=== PATIENT | female | born 1955 | race Caucasian/White ===

== ENCOUNTER 2020-09-07 15:57 | Outpatient (CLI) | payer MEDICARE, SELFPAY ==
--- NOTE | ~2020-09-07 | MM_ITS ---
EXAMINATION: MM screening brigida BI w dhiraj HISTORY: Screening mammogram TECHNIQUE: Craniocaudal and mediolateral oblique 3-D tomosynthesis images were obtained and synthetic 2-D images were generated. CAD analysis was submitted and interpreted. COMPARISON: 03/07/2019, 03/20/2017, 01/28/2016 bilateral digital screening mammogram examinations BREAST PARENCHYMAL COMPOSITION: The breasts are almost entirely fatty. FINDINGS: There is no evidence of suspicious mass, calcification, or architectural distortion to sugg est malignancy in either breast. There has been no suspicious interval change. IMPRESSION: 1. No mammographic evidence of malignancy. 2. Recommend routine screening mammography in one year. BI-RADS Category 1: Negative Reviewed, dictated and finalized at location A.
== END 2020-09-07 15:58 ==
PROVIDERS: PCP Family Medicine Sports Medicine; Visit Provider Obstetrics & Gynecology Gynecology
DX: Z12.31 Encounter for screening mammogram for malignant neoplasm of breast (principal)
CPT/HCPCS: 77063; 77067

== ENCOUNTER 2020-10-11 10:01 | Observation (INO) | payer MEDICARE, SELFPAY ==
[2020-10-11] VITALS (9 sets, daily range): BP systolic 157–180; BP diastolic 54–82; PULSE 57–71; RESP 14–20; TEMP 36.1–36.6; O2SAT 94–98
--- NOTE | ~2020-10-11 | MR_ITS ---
EXAMINATION: MR brain/brain stem wo/w con DATE: 10/12/2020 11:07 INDICATION: Cerebral vascular accident. Left-sided numbness and tingling. TECHNIQUE: Magnetic resonance imaging (MRI) of the brain and brainstem was performed without and with 17 mL MultiHance intravenous contrast. Sequences included sagittal and axial T1-weighted FSE, axial diffusion-weighted FS EPI, axial T2*-weighted GRE, axial T2-weighted FLAIR Propeller, and axial T2-we ighted Propeller. Postcontrast sequences included axial, sagittal, and coronal T1-weighted FSE. Appar ent diffusion coefficient (ADC) maps were created. COMPARISON: Head CT 10/11/2020 FINDINGS: There are scattered areas of nonspecific increased T2-weighted signal intensity in the cere bral white matter. There is no intracranial hemorrhage, acute infarction, or abnormal intracranial ma ss lesion. The ventricles are normal in size. There is mild mucosal thickening in the paranasal sinus es. There are likely changes of ocular lens replacement surgeries. The mastoid air cells are normal. IMPRESSION: 1. Mild nonspecific cerebral white matter disease, which likely represents chronic small vessel ische gloria disease. Reviewed, dictated and finalized at location B. IMPRESSION: 1. 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
--- NOTE | ~2020-10-11 | CT_ITS ---
EXAMINATION: CTA brain carotid DATE: 10/11/2020 11:25 INDICATION: Cerebral vascular accident. Left-sided numbness and tingling. TECHNIQUE: Computed tomographic angiography (CTA) of the head was performed without and with 100 mL O mnipaque-350 intravenous contrast. CTA of the neck was performed with intravenous contrast. Automated exposure control and iterative reconstruction technique were employed. The dose-length product was 1 559.53 mGy-cm. Maximum intensity projection and volume rendered 3D-reconstructions were created by dre dutton technologist on a separate workstation. COMPARISON: None. FINDINGS: HEAD CTA: There are scattered areas of low attenuation in the cerebral white matter, which is within normal limits for the patient's age. There is no intracranial hemorrhage, acute infarction, or abnorm al intracranial mass lesion. The ventricles are normal in size. There is mild mucosal thickening in t he paranasal sinuses. The mastoid air cells are normal. There are likely changes of ocular lens repla cement surgeries. The vertebral arteries are codominant. There is no significant stenosis of basilar artery or the posterior cerebral arteries. There is no significant stenosis of the intracranial inter nal carotid arteries or anterior or middle cerebral arteries. Anterior communicating artery is normal . There is a 2 mm aneurysm of right middle cerebral artery. The posterior communicating arteries are normal. NECK CTA: There are no pathologically enlarged lymph nodes. There is no significant stenosis of the v ertebral arteries. There is no visible plaque in the proximal internal carotid arteries. There is 0% stenosis of the proximal right internal carotid artery relative to normal distal artery lumen diamete r (NASCET criteria). There is 0% stenosis of the proximal left internal carotid artery relative to no rmal distal artery lumen diameter. There is severe cervical spondylosis. IMPRESSION: 1. No acute intracranial pathology. 2. 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 3. 0% stenosis of the proximal internal carotid arteries relative to normal distal artery lumen diame ters (NASCET criteria). Reviewed, dictated and finalized at location B. IMPRESSION: 1. No acute intracranial pathology. 2. 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 3. 0% stenosis of the proximal internal carotid arteries relative to normal dis isaias artery lumen diameters (NASCET criteria).
--- NOTE | ~2020-10-11 | XR_ITS ---
EXAMINATION: XR chest 1V portable DATE: 10/11/2020 10:50 INDICATION: Cerebrovascular accident. Weakness on one side of the body. TECHNIQUE: A single frontal view of the chest was obtained. COMPARISON: CT abdomen 06/03/2004 FINDINGS: The chest demonstrates clear lungs without pneumonia, pleural effusion, or pneumothorax. Th e heart size is normal. IMPRESSION: 1. No acute cardiopulmonary disease. Reviewed, dictated and finalized at location B.
--- NOTE | 2020-10-11 10:15 | ECG_ITS ---
Measurements Intervals [place] Rate: 60 P: 31 NV: 200 QRS: -19 QRSD: 94 T: 11 QT: 405 QTc: 407 Interpretive Statements SINUS RHYTHM DELAYED PRECORDIAL R/S TRANSITION VOLTAGE CRITERIA FOR LVH BORDERLINE T WAVE ABNORMALITY- ANT/INF LEADS BASELINE ARTIFACT- V4 BORDERLINE ECG Electronically Signed On 10-11-2020 10:31:34 CDT by Kwabena Viramontes D.O.
[2020-10-11 10:36] LABS: Glucose Point of Care 117 (65-105)
[2020-10-11 10:47] LABS: Basophils Absolute Auto 0.1 K/mm3 (0.0-0.1); Basophils Percent Auto 1.2 % (0.2-1.2); Eosinophils Absolute Auto 0.4 K/mm3 (0-0.3); Eosinophils Percent Auto 6.1 % (0-4.4); Hematocrit 44.7 % (37.0-47.0); Immature Granulocyte Absolute 0.02 K/mm3 (0.00-0.031); Immature Granulocyte Percent A 0.3 % (0-0.5); Lymphocytes Absolute Auto 2.32 K/mm3 (0.9-3.2); Lymphocytes Percent Auto 36.2 % (18.3-44.2); Mean Corpuscular HGB Conc 33.6 g/dl (32-36); Mean Corpuscular Volume 86.5 fl (80-100); Monocytes Absolute Auto 0.4 K/mm3 (0.1-0.6); Monocytes Percent Auto 6.9 % (2.6-8.5); Neutrophils Absolute Auto 3.2 K/mm3 (1.3-6.7); Neutrophils Percent Auto 49.3 % (45.5-73.1); Platelet Count Result 258 k/mm3 (150-375); Red Blood Count 5.17 M/mm3 (4.2-5.4); Red Cell Distribution Width 13.2 % (11.5-14.5); White Blood Count 6.4 K/mm3 (4.5-10.0)
[2020-10-11 10:59] LABS: Anion Gap 7 mmol/L (8-16); Blood Urea Nitrogen 14 mg/dL (7-17); Calcium 9.8 mg/dL (8.4-10.2); Carbon Dioxide 26 mmol/L (22-30); Chloride 106 mmol/L (98-107); Estimated CRCL calculation 60 ml/min; Estimated Glomerular Filt Rate > 60; Glucose 130 mg/dL (65-105); Potassium 3.5 mmol/L (3.4-5.0); Sodium 139 mmol/L (137-145)
[2020-10-11 11:04] LABS: Prothrombin Time 13.7 Seconds (11.1-14.7)
[2020-10-11 11:05] LABS: Partial Thromboplastin Time 24.7 SECONDS (22.3-36.8)
[2020-10-11 11:10] LABS: Troponin I < 0.012 ng/mL (0.000-0.034)
--- NOTE | 2020-10-11 12:38 | ED.GENADULT ---
HPI - General Adult General Chief complaint: Neuro Symptoms/Deficit Stated complaint: left numbness Time Seen by Provider: 10/11/20 10:02 Source: patient and RN notes reviewed Mode of arrival: ambulatory Limitations: no limitations History of Present Illness HPI narrative: Patient is a 65-year-old female who presents to emergency department for evaluation of left-sided numbness to include the left side of the face left upper extremity left lower extremity that began while at home today around 10:00 patient notes mild left-sided headache. Patient presents for concern with these findings patient denies injury trauma similar occurrence in the past or recent illness. Patient notes she did not take her blood pressure medication this morning. Patient notes that she has been compliant with her medications. On arrival patient in no distress. Related Data Home Medications Medication Instructions Recorded Confirmed aspirin 81 mg PO DAILY 10/11/20 atenolol 50 mg PO DAILY 10/11/20 Allergies Allergy/AdvReac Type Severity Reaction Status Date / Time Penicillins Allergy Severe HIVES---IN Verified 10/11/20 10:47 CHILDHOOD. adhesive Allergy Mild BLISTERS Verified 10/11/20 10:47 Review of Systems Review of Systems: All systems reviewed & are unremarkable except as noted in HPI and below PMFSH Past Medical History Medical History Hypertension Surgical History Surgical History (Updated 10/11/20 @ 12:40 by Melo Macias PA-C) History of bowel resection Social History Social History (Updated 10/11/20 @ 12:40 by Melo Macias PA-C) Smoking status: Current every day smoker Exam Narrative: Exam Narrative: GENERAL: Well-appearing, obese, and in no acute distress. HEAD: Normocephalic, atraumatic. EYES: PERRLA and EOMI. ENT: Nares clear, no rhinorrhea or epistaxis. Mucous membranes moist. CHEST: Clear to auscultation. No respiratory distress. No wheezes rales or rhonchi HEART: Regular rate and rhythm. No murmur heard. Normal peripheral pulses. ABDOMEN: Soft, nontender, nondistended EXTREMITIES: Normal range of motion. No edema. SKIN: Warm, dry, no rash. NEURO: No focal deficits. Alert and oriented x3. Cranial nerves II through XII grossly intact. Normal speech. Normal gait. Cerebellar intact. No pronator drift. Normal [id number] and xaak-iv-[id number]. PSYCH: Normal mood and affect. Course Course Emergency Course: Patient evaluated in the emergency department evaluation was unremarkable aside from aneurysm that was noticed on CT imaging discussion was made with the neurology who will consult on patient recommends further stroke work-up in hospital. Patient agrees with this plan ABCs and vital signs intact and stable. Patient symptoms are largely resolved at this time and she is resting comfortably hemodynamically stable. Consultations Consultation #1: Discussed case with neurology Dr. Mccollum who recommends bringing the patient into the hospital for further evaluation of her symptoms Discussed case with Dr. Quinones the hospitalist who has agreed to accept the patient Date: 10/11/20 Time: 12:42 Vital Signs Vital signs: Vital Signs Temperature 97.8 F 10/11/20 10:29 Pulse Rate 63 10/11/20 10:29 Respiratory Rate 18 10/11/20 10:29 Pulse Oximetry 96 10/11/20 10:29 Temperature 97.8 F 10/11/20 10:29 Pulse Rate 59 L 10/11/20 12:33 Respiratory Rate 16 10/11/20 12:33 Blood Pressure 159/79 H 10/11/20 12:33 Pulse Oximetry 97 10/11/20 12:33 Medical Decision Making [facility] Narrative Medical decision making narrative: Patient presented with numbness to the left side of the body largely resolved will be brought into the hospital for further evaluation of her symptoms. Patient agrees with this and is hemodynamically stable in no distress Vital Signs Vital Signs: Vital Signs Temperature 97.8 F 10/11/20 10:29 Pulse Ra
--- NOTE | 2020-10-11 15:27 | ADMGEN ---
This patient, Virginia Kiran, was admitted to Medical Room 243-01. Patient/family oriented to hospital policies and general routines including ID bracelet, bed and alarms, visiting hours, pain management, procedures, bathroom and other care routines, personal items, smoking policy, room service/diet, and visiting hours. Information on how to activate the Rapid Response Team has been discussed. Patient/Family are encouraged to report perceived risks to care and to ask questions if they do not understand what they are told or what they should do.
[2020-10-11] MEDS: LACTATED RINGERS 1,000 ML 75 ML IV CONT (15:45)
[2020-10-11] MEDS: atenoloL 50 MG TABLET PO (15:47)
[2020-10-11] MEDS: FAMOTIDINE 20 MG/2 ML VIAL IV PUSH (21:18)
--- NOTE | 2020-10-11 21:49 | PM.IMHP ---
H&P: HPI History of Present Illness Date/Time: 10/11/20 21:49 65-year-old female patient who came to the emergency room complaints of left-sided numbness left-sided facial numbness and tingling. The patient states she was having difficulty moving her left arm and left leg. This started today around 10:00 a.m.. She also had a left-sided headache. She has a history hypertension. No past medical history of having any strokes or TIAs. The patient states that she takes a daily aspirin the and did not take 1 today. She has not taken any of her medication today. She had a chest x-ray with no acute cardiopulmonary disease. Head CT was read as no acute intracranial pathology. To unit under 6 Agueda aneurysm afraid middle cerebral artery. 0% stenosis of the proximal internal carotid arteries relative to Marisel discharge the artery lumen diameters. The patient was given atenolol in the emergency room. She was also given IV Tylenol in the emergency room as well. The patient has no facial drooping at this time and she is moving all extremities without difficulty. The patient is being admitted to [facility] that his service of 10/11/2020. Chief Complaint: Numbness and tingling left upper arm left lower Review of Systems Review of Systems: All systems reviewed & are unremarkable except as noted in HPI and below Constitutional: Constitutional: Reports as per HPI and Reports no additional constitutional complaints Eyes: Eyes: Reports as per HPI and Reports no additional eye complaints ENT: Reports system reviewed and no additional complaints, except as documented and Reports Normal hearing present Cardiovascular: Cardiovascular: Reports no additional cardiovascular complaints Respiratory: Respiratory: Reports no additional respiratory complaints and Reports no additional respiratory complaints Gastrointestinal: Gastrointestinal: Reports as per HPI and Reports no additional gastrointestinal complaints Musculoskeletal: Musculoskeletal: Reports no additional musculoskeletal complaints Integumentary/Breasts: Skin/Breast: Reports system reviewed and no additional complaints, except as docu and Reports as per HPI Neurologic: Reports system reviewed and no additional complaints, except as documented, Reports as per HPI and Reports Normal hearing present Psychiatric: Psychiatric: Reports no additional psychiatric complaints and Reports as per HPI Endocrine: Endocrine: Reports no additional endocrine complaints Hematologic/Lymphatic: Hematologic/Lymphatic: Reports no additional hematologic/lymphatic complaints Allergic/Immunologic: Allergic/Immunologic: Reports no additional allergic/immunologic complaints [facility] Past Medical History Medical History (Updated 10/11/20 @ 22:23 by Marguerite Roth NP) History of colon cancer Hypertension Surgical History Surgical History History of bowel resection Family History Family History (Updated 10/11/20 @ 22:20 by Marguerite Roth NP) Mother CHF (congestive heart failure) Dementia Father Heart disease Colon cancer Son Carcinoma of colon Social History Social History (Updated 10/11/20 @ 22:21 by Marguerite Roth NP) Social History: The patient is and has 5 children. 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 She does not have a durable power assistant prosecuting attorney for healthcare. She is a full code. Lifelong nonsmoker. She denies any Alcohol, marijuana, or illicit drugs. Smoking status: Never smoker Second hand tobacco smoke exposure: No Alcohol intake: current Drinks per week: 2 Substance use: current Substance use type: marijuana Other substance usage details: edibles Last use: monthly Spiritual care concerns: No Meds Home Medications and Allergies Home Medications Medication Instructions Recorded Confirmed Type aspirin 81 mg PO DAILY 10/11/20 10/11/20 History atenolol 50 mg PO DAILY 10/11/20 10/11/20 Hist
[2020-10-11] MEDS: MELATONIN 5 MG TABLET PO (21:53)
[2020-10-11] MEDS: ASPIRIN 81 MG ENTERIC TABLET PO (22:13)
[2020-10-12] VITALS (11 sets, daily range): BP systolic 135–144; BP diastolic 65–67; PULSE 48–68; RESP 14–16; TEMP 36.1–36.3; O2SAT 96–99
[2020-10-12] MEDS: LACTATED RINGERS 1,000 ML 75 ML IV CONT (05:16)
[2020-10-12] MEDS: ASPIRIN 81 MG ENTERIC TABLET PO (05:44)
[2020-10-12] MEDS: atenoloL 50 MG TABLET PO ×2 (05:44→16:46)
[2020-10-12 05:49] LABS: Basophils Absolute Auto 0.1 K/mm3 (0.0-0.1); Basophils Percent Auto 1.3 % (0.2-1.2); Eosinophils Absolute Auto 0.4 K/mm3 (0-0.3); Eosinophils Percent Auto 5.9 % (0-4.4); Hematocrit 42.4 % (37.0-47.0); Hemoglobin 14.2 g/dL (12.0-15.0); Immature Granulocyte Absolute 0.02 K/mm3 (0.00-0.031); Immature Granulocyte Percent A 0.3 % (0-0.5); Lymphocytes Absolute Auto 2.99 K/mm3 (0.9-3.2); Lymphocytes Percent Auto 43.9 % (18.3-44.2); Mean Corpuscular HGB Conc 33.5 g/dl (32-36); Mean Corpuscular Hemoglobin 28.7 pg (26-34); Mean Corpuscular Volume 85.7 fl (80-100); Mean Platelet Volume 10.3 fl (7.4-10.4); Monocytes Absolute Auto 0.6 K/mm3 (0.1-0.6); Monocytes Percent Auto 8.2 % (2.6-8.5); Neutrophils Absolute Auto 2.8 K/mm3 (1.3-6.7); Neutrophils Percent Auto 40.4 % (45.5-73.1); Platelet Count Result 257 k/mm3 (150-375); Red Blood Count 4.95 M/mm3 (4.2-5.4); White Blood Count 6.8 K/mm3 (4.5-10.0)
[2020-10-12 05:58] LABS: Lactic Acid Reflex 1.3 mmol/L (0.7-2.1)
--- NOTE | 2020-10-12 06:00 | ECHO_ITS ---
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 Summary 1. Complete two-dimensional, color flow and Doppler transthoracic echocardiogram is performed. 2. Left ventricular chamber dimension is normal. 3. Left ventricular systolic function is normal, estimated at 60-65%. 4. There is mildly increased left ventricular wall thickness. 5. The left ventricular diastolic function is normal. 6. There is mild aortic valve sclerosis. Left Ventricle Left ventricular chamber dimension is normal. Left ventricular systolic function is normal, estimated at 60-65%. There is mildly increased left ventricular wall thickness. The left ventricular diastolic function is normal. Right Ventricle Right ventricular chamber dimension is normal. Right ventricular systolic function is normal. Left Atria Left atrial chamber dimension is normal. Right Atria Right atrial chamber dimension is normal. Atrial Septum Intact interatrial septum visualized by color flow imaging. Aortic Valve The aortic valve is trileaflet. There is mild aortic valve sclerosis. There is no aortic valve stenosis. There is trace aortic valve regurgitation. Pulmonic Valve The pulmonic valve is normal. There is no pulmonic valve stenosis. There is trace pulmonic regurgitation. Mitral Valve The mitral valve has normal leaflets. There is no mitral valve stenosis. There is trace mitral valve regurgitation. Tricuspid Valve The tricuspid valve leaflets are normal. There is no significant tricuspid valve stenosis. There is trace tricuspid valve regurgitation. No pulmonary hypertension, estimated pulmonary arterial systolic pressure is 12 mmHg. Pericardium/Pleural The pericardium appears normal. There is trivial pericardial effusion. Inferior Vena Cava Normal inferior vena cava with >50% collapse upon inspiration consistent with normal right atrial pressure, 5 mmHg. Aorta The aortic root size at the sinus of Valsalva is normal. The prox ascending aorta size is normal. Left Ventricular Outflow Tract Name Value Normal LVOT 2D LVOT Diameter 2.0 cm Pulmonic Valve Name Value Normal PV Doppler PV Peak Gradient 2 mmHg Mitral Valve Name Value Normal
[2020-10-12 06:04] LABS: Alanine Aminotransferase 13 U/L (4-35); Albumin Level 3.7 g/dL (3.5-5.1); Alkaline Phosphatase 73 U/L (38-126); Anion Gap 4 mmol/L (8-16); Aspartate Amino Transferase 23 U/L (14-36); Bilirubin,Total 0.6 mg/dL (0.2-1.3); Blood Urea Nitrogen 12 mg/dL (7-17); Calcium 9.4 mg/dL (8.4-10.2); Carbon Dioxide 27 mmol/L (22-30); Chloride 109 mmol/L (98-107); Estimated CRCL calculation 68 ml/min; Estimated Glomerular Filt Rate > 60; Glucose 91 mg/dL (65-105); Magnesium 2.2 mg/dL (1.6-2.3); Potassium 3.7 mmol/L (3.4-5.0); Sodium 140 mmol/L (137-145)
[2020-10-12 07:04] LABS: Folic Acid 8.5 ng/mL (2.76->20)
[2020-10-12 07:29] LABS: Free T4 Free Thyroxine Reflex 0.95 ng/dL (0.78-2.19)
[2020-10-12 08:17] LABS: Total Triiodothyronine (T3) 1.26 NG/ML (0.97-1.69)
[2020-10-12] MEDS: FAMOTIDINE 20 MG/2 ML VIAL IV PUSH (08:19)
--- NOTE | 2020-10-12 11:04 | WPDNEURCNPN ---
Assessment and Plan Assessment and plan (1) Aneurysm: Code(s): I72.9 - Aneurysm of unspecified site Status: Acute Additional Plan complains of left-sided facial numbness with incidental finding of 2mm saccular aneurysm of the right middle cerebral artery, negative CTA otherwise and no evidence of bleed, routine lab is normal will discuss with the patient for the follow-up for the aneurysm in the long run but echocardiogram can be completed as well Consult date: 10/12/20 Time Seen: 11:00 HPI: Virginia Kiran is a 65 year old female Admitted to the hospital with the complaints of left-sided numbness including left face in addition to the difficulties in moving her left upper and left lower extremity and left-sided headache patient has history of hypertension but no previous history of stroke though she has been taking aspirin which she did not take on the day of admission initial CT scan in the emergency room was negative he received atenolol in the emergency room and was admitted to the hospital for further evaluation, past history is consistent with colon cancer and hypertension in addition to the history of bowel resection, she is not a smoker drinks 2 per week, evaluation included the CTA of the brain and carotid which documented 2mm saccular aneurysm of the right middle cerebral artery but the posterior communicating arteries were normal and MRI of the brain at this stage is pending Review of Systems Review of Systems: All systems reviewed & are unremarkable except as noted in HPI and below PMFSH Past Medical History Medical History History of colon cancer Hypertension Surgical History Surgical History History of bowel resection Family History Family History Mother CHF (congestive heart failure) Dementia Father Heart disease Colon cancer Son Carcinoma of colon Social History Social History Social History: The patient is and has 5 children. 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 She is a full code. Lifelong nonsmoker. She denies any Alcohol, marijuana, or illicit drugs. Smoking status: Never smoker Second hand tobacco smoke exposure: No Alcohol intake: current Drinks per week: 2 Substance use: current Substance use type: marijuana Other substance usage details: edibles Last use: monthly Spiritual care concerns: No Meds Home Medications and Allergies Home Medications Medication Instructions Recorded Confirmed Type aspirin 81 mg PO DAILY 10/11/20 10/11/20 History atenolol 50 mg PO DAILY 10/11/20 10/11/20 History Allergies Allergy/AdvReac Type Severity Reaction Status Date / Time Penicillins Allergy Severe HIVES---IN Verified 10/11/20 15:53 CHILDHOOD. adhesive Allergy Mild BLISTERS Verified 10/11/20 15:53 Vital Signs Vital Signs - 24 hr 10/11/20 12:33 10/11/20 14:41 10/11/20 15:47 Temperature Pulse Rate 59 L 57 L 60 Respiratory Rate 16 14 Blood Pressure 159/79 H 174/72 H Pulse Oximetry 97 97 10/11/20 15:50 10/11/20 16:00 10/11/20 18:00 Temperature 36.1 C L 36.4 C L Pulse Rate 58 L 63 71 Respiratory Rate 20 18 Blood Pressure 168/82 H 157/54 H Pulse Oximetry 98 98 10/11/20 20:00 10/12/20 00:00 10/12/20 04:00 Temperature 36.2 C L 36.1 C L Pulse Rate 59 L 55 L 48 L Respiratory Rate 16 16 Blood Pressure 159/72 H 135/65 Pulse Oximetry 94 98 10/12/20 05:00 10/12/20 05:10 10/12/20 05:44 Temperature 36.3 C L 36.3 C L Pulse Rate 58 L 58 L 68 Respiratory Rate 16 16 Blood Pressure 144/65 H 144/65 H Pulse Oximetry 96 96 10/12/20 09:41 Temperature Pulse Rate Respiratory Rate Blood Pressure Pulse Oximetry 97 Exam Const: General: cooperative, healthy
[2020-10-12] MEDS: ALPRAZolam (*CRX) 0.25 MG TABLET PO (11:38)
--- NOTE | 2020-10-12 17:24 | PM.DS ---
DS: Admitting Diagnosis Admitting Diagnosis Admitting Diagnosis: Left sided weakness DS: Discharge Diagnosis Discharge Diagnosis (1) Acute CVA (cerebrovascular accident): Code(s): I63.9 - Cerebral infarction, unspecified Status: Acute (2) Hypertension: Code(s): I10 - Essential (primary) hypertension Status: Chronic (3) Paresthesia: Code(s): R20.2 - Paresthesia of skin Status: Acute (4) Aneurysm: Code(s): I72.9 - Aneurysm of unspecified site Status: Acute DS: Summary Hospital Course Reason for hospitalization: Patient is a 65-year-old woman with a history of hypertension on Atenolol and Aspirin 81 mg, who presented to the emergency room with numbness/tingling/weakness to the left side of her body which began while she was sitting down looking at her cellphone. She was able to drive herself to a local urgent care and EMS was called to bring her to emergency room. By the time she arrived in the ER her symptoms had resolved. Initial vitals showed, patient was afebrile, heart rate 63, respiratory rate 18, oxygen saturation 98% on room air, blood pressure elevated at 180/70. Initial labs showed normal CBC with differential, normal coag panel, normal CMP, troponin negative. MRI Brain showed Mild nonspecific cerebral white matter disease, which likely represents chronic small vessel ischemic disease. No acute or chronic stroke. CTA Head&Neck showed No acute intracranial pathology. 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 0% stenosis of the proximal internal carotid arteries relative to normal distal artery lumen diameters (NASCET criteria). Echocardiogram showed normal EF 60-65%, normal diastolic function. Mild LVH. Neurology evaluated the patient and recommended follow up as an outpatient. I also called Neurosurgery at [facility] for further evaluation and to set up follow up for her aneurysm and Dr. Howell stated at this time she has a 0% chance of rupture as long as her aneurysm is less than 7mm. He said he would continue her Aspirin at this time, she could be able to tolerate her being increased to Plavix, but at this time he would recommend her following up with him as an outpatient and they can make adjustments to her regimen if needed. Informed the patient and daughter at bedside. I also obtained labs from her cardiologists office which were completed within the last 2 months which showed her LDL cholesterol was elevated at 187 and total cholesterol was elevated as well. She was not started on a cholesterol medication. She did have a Calcium Score completed at cardiology office which showed she had very low risk of disease at 0. Her Head and Neck CTA showed no carotid stenosis. Based on stroke like symptoms and increased cholesterol will start her on Atrovastatin 40 mg and have her recheck Lipid panel in 6 weeks. Follow up with special education science teacher, Neurology, Neurosurgeon and PCP within 1 week of discharge for further evaluation and monitoring. Also, placed order for Holter Monitor to be placed at her cardiology office for further evaluation and to rule out arrhythmia. Her sister has a history of Afib and mother had TIAs, During her admission Tele was unremarkable. Will call her special education science teacher to try and get this set up and sent to her home. The patient understands and agrees with the plan. All questions answered. Hospital Course: See above Status at Discharge Cognitive/behavioral status at discharge: Stable, improved. Time Spent with Patient Time attestation: Total time spent providing and/or coordinating discharge services: 41 Time spent: Greater than 30 minutes Exam Narrative: Exam Narrative: General: 65-year-old woman sitting up in bed,appears anxious. Appears comfortable. In no acute distress. Skin: No jaundice or cyanosis. Good skin turgor. Neck: Full range of motion. Supple. Respiratory: Lungs are clear to auscultation bilaterally. No bony chest wall tenderness. Cardiovascular: T
== END 2020-10-12 17:54 | disposition home or self-care (01) ==
LOC: ANHED 12:44 → ANH2MED 13:15
PROVIDERS: Emergency Medicine Emergency Medical Services; Nurse Practitioner; Admitting Provider Family Medicine; Emergency Provider Emergency Medicine; PCP Family Medicine Sports Medicine; Visit Provider Internal Medicine
DX: I67.1 Cerebral aneurysm, nonruptured (principal); G81.94 Hemiplegia, unspecified affecting left nondominant side; I10 Essential (primary) hypertension; Z85.038 Personal history of other malignant neoplasm of large intestine; R20.2 Paresthesia of skin
CPT/HCPCS: 36415; 70496; 70498; 70553; 71045; 80048; 80053; 81025; 82607; 82746; 82948; 83605; 83735; 84439; 84443; 84480; 84484; 85025; 85610; 85730; 93005; 93306; 96361; 96374; 96375; 96376; 99285; A9270; A9577; G0378; J0131; J7120; Q9967

== ENCOUNTER 2022-03-28 11:30 | Outpatient (CLI) | payer MEDICARE, SELFPAY ==
--- NOTE | ~2022-03-28 | MM_ITS ---
EXAMINATION: MM screening [facility] BI w dhiraj HISTORY: Screening mammogram TECHNIQUE: Craniocaudal and mediolateral oblique 3-D tomosynthesis images were obtained and synthetic 2-D images were generated. CAD analysis was submitted and interpreted. COMPARISON: 09/07/2020, 03/07/2019, 03/20/2017 BREAST PARENCHYMAL COMPOSITION: The breasts are almost entirely fatty. FINDINGS: No suspicious mass, calcification, or architectural distortion are identified in either myke ast to suggest malignancy. There has been no suspicious interval change. IMPRESSION: 1. No mammographic evidence of malignancy. 2. Recommend routine screening mammography in one year. BI-RADS Category 1: Negative Reviewed, dictated and finalized at location A.
--- NOTE | ~2022-03-28 | DEXA_ITS ---
Bone Density Report Name: BRENNAN NEWMAN Age: 66 Sex: Female Ethnicity: White Date of : 1955 Indication: osteopenia; monitoring treatment; hysterectomy; postmenopausal Referring Provider: CHANCE BURNS Study: Bone densitometry was performed. Exam Date: March 28, 2022 Accession number: [id number] Bone Density: Region BMD T-score Z-score Classification AP Spine (L1-L4) 0.847 -1.8 0.0 Osteopenia Femoral Neck (Left) 0.765 -0.8 0.8 Normal Total Hip (Left) 0.872 -0.6 0.7 Normal Femoral Neck (Right) 0.706 -1.3 0.3 Osteopenia Total Hip (Right) 0.792 -1.2 0.0 Osteopenia Total Hip Mean 0.832 -0.9 0.4 Normal World Health Organization criteria for BMD impression classify patients as: Normal (T-score at or above -1.0), Osteopenia (T-score between -1.0 and -2.5), or Osteoporosis (T-score at or below -2.5). 10-year Fracture Risk: FRAX not reported because: Treated for osteoporosis Previous Exams: Region Exam Age BMD T-score BMD Change BMD Change Date g/cm2 vs Baseline vs Previous AP Spine(L1-L4) 03/28/2022 66 0.847 -1.8 -0.034* 0.019 03/07/2019 63 0.828 -2.0 -0.053* -0.053* 01/03/2010 54 0.880 -1.5 Total Hip(Left) 03/28/2022 66 0.872 -0.6 0.033* 0.030* 03/07/2019 63 0.841 -0.8 0.003 0.003 01/03/2010 54 0.839 -0.8 Total Hip(Right) 03/28/2022 66 0.792 -1.2 -0.010 -0.020 03/07/2019 63 0.812 -1.1 0.010 0.010 01/03/2010 54 0.802 -1.1 *Denotes significance at 95% confidence level, LSC for AP Spine = 0.022 g/cm2, LSC for Total Hip = 0.027 g/cm2 Clinical Information Provided by Patient: Is being treated for osteoporosis Has used the following medications: Boniva (i.e. ibandronate), Vitamin D Has the following medical conditions: Hysterectomy Patient maximum height was 60 Menopause Age: 43 Drinks caffeinated beverages Onset of menses at age 10 Number of children 5 Impression: The patient has low bone mass, based on the Total Spine T-score. No significant bone loss was observed. Discussion: PATIENT UNDER TREATMENT WITH NO SIGNIFICANT BMD LOSS SINCE LAST EXAM. In an untreated patient, BMD typically declines with age. A lack of decline or gain is usually a sign that treatment is efficacious and fracture risk is reduced. It is important to ask patients whether they are taking their medications and to encourag
== END 2022-03-28 11:31 ==
PROVIDERS: PCP Family Medicine Sports Medicine; Visit Provider Obstetrics & Gynecology Gynecology
DX: Z12.31 Encounter for screening mammogram for malignant neoplasm of breast (principal); Z78.0 Asymptomatic menopausal state; M85.88 Other specified disorders of bone density and structure, other site; M85.851 Other specified disorders of bone density and structure, right thigh
CPT/HCPCS: 77063; 77067; 77080

== ENCOUNTER 2024-01-30 13:34 | Outpatient (CLI) | payer MEDICARE, SELFPAY ==
--- NOTE | ~2024-01-30 | MM_ITS ---
EXAMINATION: MM screening [facility] BI w dhiraj HISTORY: Screening TECHNIQUE: Craniocaudal and mediolateral oblique 3-D tomosynthesis images were obtained and synthetic 2-D images were generated. CAD analysis was submitted and interpreted. COMPARISON: Comparison to multiple prior studies sequentially, with oldest reviewed study dated 01/27. BREAST PARENCHYMAL COMPOSITION: Not Dense: The breasts are almost entirely fatty. FINDINGS: There is no evidence of suspicious mass, calcification, or architectural distortion to sugg est malignancy in either breast. There has been no suspicious interval change. IMPRESSION: 1. No mammographic evidence of malignancy. 2. Recommend routine screening mammography in one year. BI-RADS Category 1: Negative Reviewed, dictated and finalized at location B.
== END 2024-01-30 13:35 ==
PROVIDERS: PCP Family Medicine Sports Medicine; Visit Provider Obstetrics & Gynecology Gynecology
DX: Z12.31 Encounter for screening mammogram for malignant neoplasm of breast (principal)
CPT/HCPCS: 77063; 77067

== ENCOUNTER 2024-09-01 12:22 | Outpatient (CLI) | payer MEDICARE, SELFPAY ==
--- NOTE | ~2024-09-01 | DEXA_ITS ---
Bone Density Report Name: BRENNAN NEWMAN Age: 69 Sex: Female Ethnicity: White Date of : 1955 Indication: postmenopausal; screening for osteoporosis; hysterectomy; Referring Provider: CHANCE BURNS Study: Bone densitometry was performed. Exam Date: September 01, 2024 Accession number: [id number] Bone Density: Region BMD T-score Z-score Classification AP Spine(L1-L4) 0.831 -2.0 0.0 Osteopenia Femoral Neck (Left) 0.622 -2.0 -0.3 Osteopenia Total Hip (Left) 0.894 -0.4 1.0 Normal Femoral Neck (Right) 0.647 -1.8 -0.1 Osteopenia Total Hip (Right) 0.750 -1.6 -0.2 Osteopenia Total Hip Mean 0.822 -1.0 0.4 Normal World Health Organization criteria for BMD impression classify patients as: Normal (T-score at or above -1.0), Osteopenia (T-score between -1.0 and -2.5), or Osteoporosis (T-score at or below -2.5). 10-year Fracture Risk(1): Major Osteoporotic Fracture 11% Hip Fracture 2.0% Reported Risk Factors: [place] (), Neck BMD=0.622, BMI=29.1 (1) FRAX(R) Version 3.08. Fracture probability calculated for an untreated patient. Fracture probability may be lower if the patient has received treatment. Clinical Information Provided by Patient: Has used the following medications: Vitamin D Has the following medical conditions: Hysterectomy Patient maximum height was 60 Menopause Age: 43 Onset of menses at age 10 Number of children 5 Impression: The patient has low bone mass, based on the Total Spine T-score. The patient has an estimated ten-year risk of hip fracture of 2% and an estimated ten-year risk of major fracture of 11%, based on the WHO FRAX algorithm. Discussion: BONE DENSITY IS LOW AT ONE OR MORE SKELETAL SITES. This patient's lowest T-score is low at one or more skeletal sites. It meets the World Health Organization's (WHO) criteria for ?low bone mass? (T-score between -1.0 and -2.5). The patient's 10-year risk of fracture as calculated by FRAX is less than the threshold where pharmacological therapy is recommended by the National Osteoporosis Foundation (NOF). However, all treatment decisions require clinical judgment and consideration of individual patient factors, including patient preferences, comorbidities, previous drug use, risk factors not captured in the FRAX model (e.g., frailty, falls, vitamin D deficiency, increased bone turnover, interval significant decline in bone density) and possible under or overestimation of fracture risk by FRAX. The patient should follow a healthful lifestyle (good nutrition with adequate calcium and vitamin D, and appropriate weight-bearing exercise). Follow-Up: Consider repeating this study in 2 to 3 years to reassess this patient's status, or sooner if there is some new clinical indication. Reported by: JENNYFER on 09/01/2024 1:42:00 PM. Reviewed, dictated and finalized at location A. [facility]ARGAS
--- OUTSIDE RECORDS SUMMARY | 2024-09-01 13:29 | XMS_ITS ---
Author Organization [facility] Address [address] [place] [id number] Care Team Providers Care Gold Cutter Name Role Phone Chayito Coronado MD Primary Care Provider [phone] Active Problems Problem Noted Date Diagnosed Date History of colon polyps 03/20/2024 Personal history of colon cancer 02/18/2024 Personal history of colonic polyps 02/18/2024 Tongue lesion 02/15/2022 Assessment & Plan (02/15/2022 10:46 AM CDT): This is a varicosity I explained. It is benign. It typically will not cause any significant problems. It can be watch but I really do not recommend removal unless it becomes more symptomatic or problematic. She understands. She will see me as needed. Right now the size is 1 cm. Dyslipidemia 07/16/2020 Colon cancer 06/02/2020 Screening for malignant neoplasm 04/27/2020 Overview (04/27/2020): Added automatically from request for surgery [id number] (shortness of breath) 08/26/2018 Hypertension 04/05/2018 Low vitamin D level 03/20/2017 Headache 12/21/2015 Obesity 12/21/2015 Allergic rhinitis 05/14/2015 Abdominal pain 01/26/2015 Vitamin D deficiency disease 01/15/2015 History of malignant neoplasm of colon 5 Derangement of anterior horn of lateral meniscus of left knee 01/07/2015 Hyperlipidemia 10/28/2014 Mallet finger 05/13/2014 Peripheral neuropathy 12/17/2012 Patellar tendonitis 04/02/2012 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 Past Treatment and Therapy Plans No past plan information found. Lifetime Dose Tracking * Chemical Lifetime Dose Automatic Entry Manual Entr y DLP 962 mGycm 962 mGycm 0 mGycm
--- OUTSIDE RECORDS SUMMARY | 2024-09-01 13:30 | XMS_ITS | Continuity of Care Document ---
Author Organization [facility] Address [id number] [place] [address] [address] [place] [address] Phone Care Team Providers Care Enzyme Chemist Name Role Phone Jitendra Richard MD Unavailable Unavailable Allergies, Adverse Reactions, Alerts Substance Reaction Status Criticality No Known allergies Procedures Procedure Date POSTOP FOLLOW-UP VISIT POSTOP FOLLOW-UP VISIT AFTER CATARACT LASER SURGERY OFFICE/OUTPATIENT VISIT, EST POSTOP FOLLOW-UP VISIT POSTOP FOLLOW-UP VISIT Pt Not Seen P Encounter # Created POSTOP FOLLOW-UP VISIT EXCHANGE LENS PROSTHESIS POSTOP FOLLOW-UP VISIT POSTOP FOLLOW-UP VISIT CATARACT SURG W/IOL, 1 STAGE POSTOP FOLLOW-UP VISIT AFTER CATARACT LASER SURGERY POSTOP FOLLOW-UP VISIT POSTOP FOLLOW-UP VISIT CATARACT SURG W/IOL, 1 STAGE Advance Directives Directive Yes / No Effective Date File Name No Information Encounters Encounter Description Practice Location Reason(s) For Visit Diagnoses Date Provider Providers Copied on Encounter [facility], [address], [place], [place], [id number], [place] tel:[phone] [facility] No Information Willy Ham. [address] [facility], [address], [place], [address], . tel:[phone] Referring Provider: Jitendra Esparza, [id number] [place] [address] [address], [place], [address]. tel:[phone] [facility], [address] [address], [place], [place], [address], [place] tel:[phone] [facility] Office Lens replaced by other means 2 Hilary Jitendra. [address] [facility], [address], [place], [address], [place]. tel:[phone] Referring Provider: Jitendra Esparza, [address] [facility] [address], [place], [address]. tel:[phone] [facility], [address] [place], [place] [address], [place], [place], [address], [place] tel:[phone] [facility] No Information 2 Hilary Jitendra. [address] [facility], [address], [place], [address], [place]. tel:[phone] Referring Provider: Jitendra Esparza, [address] [place] [address] [address], [place], [address]. tel:[phone] OFFICE/OUTPA TIENT VISIT, EST [facility], [address] [place] [address] [address], [place], [place], [address], [place] tel:[phone] [facility] Tear film insufficiency , unspecifiedAf ter-cataract, obscuring visionOther vitreous opacitiesPres byopiaOther states following surgery of eye and adnexa 2 Hilary Jitendra. [address] [facility], [address], [place], [address], [place]. tel:[phone] Referring Provider: Jitendra Esparza, [address] [facility] [address], [place], [address]. tel:[phone] [facility], [address] [place], [place] [address] [address], [place], [place], [address], [place] tel:[phone] [facility] No Information 0 Hilary Jitendra. [address] [place] [address], [address], [place], [address], [place]. tel:[phone] [facility], [address] [address], [place], [place], [address], [place] tel:[phone] [facility] No Information 0 0 Hilary Jitendra. [address], [address], [place], [address], [place]. tel:[phone] [facility], [address] [address], [place], [place], [address], [place] tel:[phone] [facility] No Information 0 Hilary Jitendra. [address], [address], [place], [address], [place]. tel:[phone] [facility], [address] [address], [place], [place], [address], [place] tel:[phone] [facility] No Information 0 Hilary Jitendra. [address], [address], [place], [address], [place]. tel:[phone] [facility], [address] [address], [place], [place], [address], [place] tel:[phone] [facility] No Information 0 Hilary Jitendra. [address], [address], [place], [address], [place]. tel:[phone] Referring Provider: Jorge Luis Wynne MD D, [address] [place] [address] Dr [address], [facility], [address]. tel:[phone] [facility], [address] [address], [place], [place], [address], [place] tel:[phone] [facility] No Information 0 Hilary Jitendra. [address], [address], [place], [address], [place]. tel:[phone] [facility], [address] [address], [place], [place], [address], [place] tel:[phone] [facility] No Information Dec-2 3-200 9 Hilary Jitendra. [address], [address], [place], [address], [place]. tel:[phone] [facility], [address] [address], [place], [place], [address], [place] tel:[phone] [facility] No Information Dec-2 1-200 9 Hilary Jitendra. [address], [address], [place], [address], [place]. tel:[phone] [facility], [address] [place] [address], [place], [place], [address], [place] tel:[phone] [facility] No Information Dec-0 2-200 9 Hilary Jitendra. [address], [address], [place], [address], [place]. tel:[phone] [facility], [address] [place], [place] [address] [address], [place], [place], [address], [place] tel:[phone] [facility] No Information Nov-1 6-200 9 Hilary Jitendra. [address], [address], [place], [address], [place]. tel:[phone] [facility], [address] [facility] [address], [place], [place], [address], [place] tel:[phone] [facility] No Information Oct-2 1-200 9 Hilary Jitendra. [address], [address], [place], [address], [place]. tel:[phone] [facility], [address] [facility] [address], [place], [place], [address], [place] tel:[phone] [facility] No Information Sep-3 0-200 9 Hilary Jitendra. [address], [address], [place], [address], [place]. tel:[phone] [facility], [address] [place] [address], [place], [place], [address], tel:[phone] [facility] No Information Hilary Ham. [address], [address], [place], [address], [place]. tel:[phone] Family History Family Member Type Diagnosis Age At Onset Mother Problem (finding) cataract Brother Problem (finding) glaucoma Payers Payer name Insurance type Covered alliance party ID Justice hedrick(s) [facility] [id number] Social History Type Description Quantity Date Captured Comments Alcohol Use Details Unknown Caffeine Use Details Unknown Tobacco Use Status No Information Smoking Status No Information Sex Female Chief Complaint And Reason For Visit No Information Reason For Referral Reason For Referral No Information History Of Present Illness Encounter Date Complaint History Of Prese nt Illness No Information Functional Status Date Functional Assessmen t No Information Instructions Date Instruction Additional Infor maria teresa - Return in 1 year f or Complete Exam, with Jitendra Richard MD. - Return in 1 year f or Complete Exam, with Jitendra Richard MD. Related to Dry Eye Syndrome S/P Refractive Surge ry, OD Lasik OD - Pt. interested in Lasik OS. Will have Yag first. Related to S/P Refractive Surgery Vitreous Floaters, O U- retina appears stable - Will continue to observe condition and or symptoms. Related to Vitreous Floaters Dry Eye Syndrome, OU - Patient instructed to use artificial tears as needed. Related to Dry Eye Syndrome Opacified Capsule, O S-affecting vision - Discussed Yag Cap. Pt. elects treatment,OS Related to Opacified Capsule Assessments Type Assessment Date No Information Patient Care Teams Name Effective Dates (start - stop) Status Members No Information
--- OUTSIDE RECORDS SUMMARY | 2024-09-01 13:30 | XMS_ITS | Clinical Summary ---
Author Organization [facility] Address [facility] [place] [address] Care Team Providers Care Aircraft Engine Mechanic Supervisor Name Role Phone Chayito Coronado MD Primary Care Provider [phone] Allergies Active Allergy Reactions Criticality Noted Date Comments Adhesive Other (See comments) Low 08/06/2020 Reaction: Other Amlodipine Swelling Medium 09/28/2021 Penicillins Medications ALPRAZolam (XANAX) 0.25 mg tablet 1 Active atenoloL (TENORMIN) 50 mg tablet [address] (CYMBALTA) 30 mg capsule 1 Active ibandronate (BONIVA) 150 mg tablet 1 Active rosuvastatin (CRESTOR) 20 mg tablet 2 Active cholecalciferol (VITAMIN D-3) 50,000 unit capsule TAKE 1 CAPSULE BY MOUTH EVERY 3 DAYS 2 Active dextroamphetami ne-amphetamine (ADDERALL) 20 mg tablet Take 1 tablet (20 mg total) by mouth 2 (two) times a day 4 Active benzonatate (TESSALON) 200 mg capsule 4 Active guaiFENesin-cod eine (GUAITUSS AC) liquid 100-10 mg/5 mL 0 4 Active estradioL (ESTRACE) 0.01 % (0.1 mg/gram) vaginal cream Insert into the vagina daily as needed 4 Active losartan (COZAAR) 50 mg tablet Take 2 tablets (100 mg total) by mouth daily 4 Active furosemide (LASIX) 20 mg tablet TAKE 1 TABLET(20 MG) BY MOUTH EVERY MORNING NEEDED FOR SWELLING 3 Active azithromycin (ZITHROMAX) 250 mg tablet TAKE 2 TABLETS BY MOUTH FOR 1 DAY THEN TAKE 1 TABLET BY MOUTH DAILY FOR 4 DAYS 4 Active semaglutide 0.25 mg or 0.5 mg (2 mg/3 mL) pen injector injection Inject 0.25 mg under the skin once a week 4 Active triamcinolone (KENALOG) 0.1 % paste Apply to teeth 2 (two) times a day 4 Active mupirocin (BACTROBAN) 2 % ointment APPLY TOPICALLY TO THE AFFECTED AREA THREE TIMES DAILY FOR 7 DAYS 4 Active ALPRAZolam (XANAX) 0.5 mg tablet 4 Active metoprolol tartrate (LOPRESSOR) 50 mg immediate release tablet Take 1 tablet (50 mg total) by mouth 2 (two) times a day 4 Active olmesartan (BENICAR) 40 mg tablet Take 1 tablet (40 mg total) by mouth daily 4 Active Active Problems Problem Noted Date Diagnosed Date [...] (04/27/2020): Added automatically from request for surgery [id number] SOB (shortness of breath) 08/26/2018 Hypertension 04/05/2018 Low vitamin D level 03/20/2017 Headache 12/21/2015 Obesity 12/21/2015 Allergic rhinitis 05/14/2015 Abdominal pain 01/26/2015 Vitamin D deficiency disease 01/15/2015 History of malignant neoplasm of colon 5 Derangement of anterior horn of lateral meniscus of left knee 01/07/2015 Hyperlipidemia 10/28/2014 Mallet finger 05/13/2014 Peripheral neuropathy 12/17/2012 Patellar tendonitis 04/02/2012 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 Anxiety 01/01/2012 Immunizations Immunization Administration Dates Next Due Pfizer SARS-CoV-2 Monovalent Vaccination (12+ Yrs) PURPLE 07/30/2020,07/09/2020 Surgical History Surgery Date Site/Laterality Comments COLON SURGERY TOTAL COLECTOMY SECTION x 5 BILATERAL OOPHORECTOMY COLONOSCOPY TONSILLECTOMY WISDOM TOOTH EXTRACTION Medical History Medical History Date Comments Colon cancer (HCC) GERD (gastroesophageal reflux disease) Hypertension Ectopic Depression Tongue lesion Cerebral aneurysm, nonruptured n o intervention required Cardiomegaly mild on recent i maging Family History Medical History Relation Name Comments Diabetes Brother Hypertension Brother Cancer Father Colon cancer Father Cancer, colon - (Added by TW Conv) Diabetes Maternal Grandmother Diabetes Mother Heart disease Mother Hypertension Mother Cancer Other Family history of malignant neoplasm - (Added by TW Conv) Diabetes Paternal Grandfather Diabetes Paternal Grandmother Heart disease Sister Hypertension Sister Relation Name Status Comments Brother Father Maternal Grandmother Mother Other Paternal Grandfather Paternal Grandmother Sister Social History Tobacco Use Types Packs/Day Years Used Date Smoking Tobacco: Never Smokeless Tobacco: Never Tobacco Cessation:Counseling Given: No AUDIT-C Answer Date Recorded Q1: How often do you have a drink containing alcohol? Never 05/07/2024 Q2: How many drinks containi ng alcohol do you have on a typical day when you are drinking? Patient does not drink Q3: How often do you have si x or more drinks on one occasion? Never 05/07/2024 Personal Safety Answer Date Recorded Have you ever been in or are you currently in a harmful physical or emotional relationship or is someone making you feel afraid or unsafe? Denies 05/07/2024 Comments No Sex and Gender Information Value Date Recorded Sex Assigned at Not on file Legal Sex Female 8:36 AM SOLAR SYSTEM INSTALLER Gender Identity Not on file Sexual Orientation Not on file Obstetrics History Last Filed Vital Signs Vital Sign Reading Time Taken Comments Blood Pressure 154/87 05/07/2024 3:55 PM SOLAR SYSTEM INSTALLER Pulse 61 05/07/2024 3:55 PM SOLAR SYSTEM INSTALLER Temperature 36.2 C (97.2 F) 05/07/2024 3:30 PM SOLAR SYSTEM INSTALLER Respiratory Rate 16 05/07/2024 3:55 PM SOLAR SYSTEM INSTALLER Oxygen Saturation 96% 05/07/2024 3:55 PM SOLAR SYSTEM INSTALLER Inhaled Oxygen Concentration - - Weight 70.3 kg (155 lb) 05/07/2024 2:31 PM SOLAR SYSTEM INSTALLER Height 152.4 cm (5') 05/07/2024 2:31 PM SOLAR SYSTEM INSTALLER Body Mass Index 30.27 05/07/2024 2:31 PM SOLAR SYSTEM INSTALLER Plan of Treatment Health Maintenance Due Date Last Done Comments Colon Cancer Screening-Colonoscopy 1955 Depression Screening 1955 Hepatitis C Screening 1955 Osteoporosis Screening-Bone Density Scan 1955 Hepatitis B Screening 1974 Pneumococcal vaccine 65+ (1 of 1 - PCV) 2006 Breast Cancer Screening-Mammogram 11/25/2014 014, 11/25/2013 Well Visit 65+ 2021 Covid-19 Vaccine (6 - 2023-2 5 season) 2024 03/12/2023, 09/16/2021, 03/28/2021, Additional history exists Influenza Vaccine (#1) 2024 , 06/16/2022, 02/17/2021, Additional history exists Fall Risk Assessment 05/07/2025 05/07/2024 DTaP/Tdap/Td Vaccine (2 - Td or Tdap) 04/19/2030 04/19/2020 Zoster Vaccine Completed 09/08/2018, 06/20/2018 Insurance [employer]IC[employer] PPO [employer] [place] [address] [place] [address] [employer]IC[employer] PPO * Guarantor: ANAYELI BERMEO Account Type Relation to Patient Date of Phone Billing Address Personal/Family Other [phone] (Home) [address] [place] [address] Advance Directives For more information, please contact: [phone] * Full Code (Latest Code Status on File) Date Activated Date Inactivated Comments 05/07/2024 2:34 PM 05/07/2024 8:33 PM * Full Code Date Activated Date Inactivated Comments 08/06/2020 8:38 AM 08/06/2020 3:27 PM Care Teams Aircraft Engine Mechanic Supervisor Relationship Specialty Start Date End Date Chayito Coronado MD [address] [address] [place], [place] [id number] PCP - General Sports Medicine 04/26/20
--- OUTSIDE RECORDS SUMMARY | 2024-09-01 13:30 | XMS_ITS | Referral Summary ---
Author Organization [facility] Address [facility] [place] [address] Care Team Providers Care Sawsmith Name Role Phone Chayito Coronado MD Primary Care Provider [phone] Allergies Active Allergy Reactions Criticality Noted Date [...] (04/27/2020): Added automatically from request for surgery [id number] SOB (shortness of breath) 08/26/2018 Hypertension 04/05/2018 [...] SARS-CoV-2 Monovalent Vaccination (12+ Yrs) PURPLE 07/30/2020,07/09/2020 Social History Tobacco Use Types Packs/Day Years [...] on file Legal Sex Female 8:36 AM SKIVER UPPERS OR LININGS Gender Identity Not on file Sexual Orientation Not on file Last Filed Vital Signs Vital Sign Reading Time Taken Comments Blood Pressure 154/87 05/07/2024 3:55 PM SKIVER UPPERS OR LININGS Pulse 61 05/07/2024 3:55 PM SKIVER UPPERS OR LININGS Temperature 36.2 C (97.2 F) 05/07/2024 3:30 PM SKIVER UPPERS OR LININGS Respiratory Rate 16 05/07/2024 3:55 PM SKIVER UPPERS OR LININGS Oxygen Saturation 96% 05/07/2024 3:55 PM SKIVER UPPERS OR LININGS Inhaled Oxygen Concentration - - Weight 70.3 kg (155 lb) 05/07/2024 2:31 PM SKIVER UPPERS OR LININGS Height 152.4 cm (5') 05/07/2024 2:31 PM SKIVER UPPERS OR LININGS Body Mass Index 30.27 05/07/2024 2:31 PM SKIVER UPPERS OR LININGS Plan of Treatment Not on file Insurance [employer]IC[employer] [place] [address] [employer] MEDICARE PPO [employer] MEDICARE PPO * Guarantor: ANAYELI BERMEO Account Type Relation to Patient Date of Phone Billing Address Personal/Family Other [phone] (Home) [address] [place] [address] Advance Directives For more information, please contact: [phone] * Full Code (Latest Code Status on File) Date Activated Date Inactivated Comments 05/07/2024 2:34 PM 05/07/2024 8:33 PM * Full Code Date Activated Date Inactivated Comments 08/06/2020 8:38 AM 08/06/2020 3:27 PM Care Teams Sawsmith Relationship Specialty Start Date End Date Chayito Coronado MD [address] [facility] [address] [place] [address] PCP - General Sports Medicine 04/26/20
== END 2024-09-01 12:23 | disposition home or self-care (01) ==
PROVIDERS: PCP Family Medicine Sports Medicine; Visit Provider Obstetrics & Gynecology Gynecology
DX: M85.89 Other specified disorders of bone density and structure, multiple sites (principal); Z78.0 Asymptomatic menopausal state
CPT/HCPCS: 77080

== ENCOUNTER 2025-05-29 08:35 | Emergency (ER) | payer MEDICARE, SELFPAY ==
--- NOTE | 2025-05-29 08:43 | ED_ITS ---
HPI - URI/Sore Throat General Chief Complaint: Upper Respiratory Infection Stated Complaint: Fever coughing Time Seen by Provider: 05/29/25 08:45 Source: patient, RN notes reviewed and old records reviewed Mode of arrival: ambulatory Limitations: no limitations History of Present Illness HPI Narrative: 70-year-old female presents to the [facility] with complaints of cough and fever that started on Michael Blanka, 2 days ago. Has taken cough syrup that she had left over as well as Motrin and Tylenol. Onset (ago): day(s) (2) Treatments prior to arrival: acetaminophen, ibuprofen and other (Cough syrup) Related Data Home Medications ?Medication ?Instructions ?Recorded ?Confirmed ?Last Taken ?Type aspirin 81 mg tablet 81 mg PO DAILY 10/11/2005/05 Unknown History atenolol 50 mg tablet 50 mg PO BID 10/11/20 Unknown History Allergies Allergy/AdvReac Type Severity Reaction Status Date / Time Penicillins Allergy Severe HIVES---IN Verified 05/29/25 08:46 CHILDHOOD. adhesive Allergy Mild BLISTERS Verified 05/29/25 08:46 Sulfa (Sulfonamide Allergy Unknown Unknown Verified 05/29/25 08:46 Antibiotics) Review of Systems Review of Systems: All systems reviewed & are unremarkable except as noted in HPI and below Constitutional: Constitutional: Reports as per HPI, Reports body ache(s) and Reports fever(s) ENT: Reports as per HPI and Reports sore throat Cardiovascular: Cardiovascular: Reports no additional cardiovascular complaints, Denies chest pain and Denies dyspnea Respiratory: Respiratory: Reports as per HPI, Denies chest congestion, Reports cough and Denies dyspnea Musculoskeletal: Musculoskeletal: Reports no additional musculoskeletal complaints Integumentary/Breasts: Skin/Breast: Reports system reviewed and no additional complaints, except as docu PMFSH Past Medical History Medical History History of colon cancer Hypertension Surgical History Surgical History History of bowel resection Family History Family History Mother CHF (congestive heart failure) Dementia Father Heart disease Colon cancer Son Carcinoma of colon Social History Social History Social History: The patient is and has 5 children. 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 She does not have a durable power assistant city attorney for healthcare. She is a full code. Lifelong nonsmoker. She denies any Alcohol, marijuana, or illicit drugs. Smoking status: Never smoker Second hand tobacco smoke exposure: No Alcohol intake: current Drinks per week: 2 Substance use: current Substance use type: marijuana Other substance usage details: edibles Last use: monthly Spiritual care concerns: No Comments At the time of my signature, I reviewed and agree with the nursing past medical, surgical, social, and family history. There is no relevant family history pertinent to the patient complaint. Exam Const: General: cooperative, healthy appearing, comfortable, no acute distress, well developed, alert and well nourished Nutritional Appearance: well nourished Orientation/consciousness: patient oriented x3 Limitations: no limitations HENMT: Head: normal to inspection Ears: hearing grossly normal bilaterally, external ears normal, TM's normal bilaterally, EAC's normal, mastoids normal and no periauricular adenopathy Mouth: Yes Normal oral and palatal mucosa present, Yes lip normal, Yes tongue normal and Yes moist mucous membranes Throat: posterior oropharynx normal, uvula midline and no uvular edema Eyes: General: appearance normal, both eyes and all related structures Alignment and Position: alignment normal Neck: Neck: normal visual inspection, full ROM, no lymphadenopathy and no meningeal signs Chest: Chest palpation & inspection: normal inspection of the chest Resp: Effort & Inspection: normal respiratory effort and able to speak in complete sentences Auscultation: clear to auscultation bilaterally, no crackles, no rales, no rhonchi and no wheezes Cardio: Rate: regular rate Skin: General skin exam: normal color and no rashes or lesions noted Neuro: General: patient oriented x3, gait normal, moves all extremities and no meningeal signs Cognition (Neuro): normal cognition Speech: normal speech Gait exam (Neuro): Normal gait present Extrem: General: normal to inspection, full ROM, capillary refill normal and n ormal gait Psych: Appearance: grossly normal and well kempt Mental Status: mental status grossly normal Speech and movement: Normal speech and movement present and Clear speech present Affect: normal affect Attitude: cooperative Course Course Level of Care: Express Care Visit Vital Signs Vital signs: Vital Signs Temperature 97.1 F L 05/29/25 08:46 Pulse Rate 80 05/29/25 08:46 Respiratory Rate 16 05/29/25 08:46 Blood Pressure 138/82 05/29/25 08:46 Pulse Oximetry 97 05/29/25 08:46 Temperature 97.1 F L 05/29/25 08:46 Pulse Rate 80 05/29/25 08:46 Respiratory Rate 16 05/29/25 08:46 Blood Pressure 138/82 05/29/25 08:46 Pulse Oximetry 97 05/29/25 08:46 reviewed MDM MDM Narrative Medical decision making narrative: Patient sitting in exam room. Patient is nontoxic, vitals stable. Patient with 2 day history of URI symptoms. Flu, COVID, strep were negative. Patient most likely with URI symptoms. Patient is nontoxic. Patient appropriate for outpatient treatment with close follow-up Discharge instructions reviewed with patient, as well as provided in writing per nursing staff. The instructions also include specific and strict return/GO TO THE ER as well as f/u information. All questions have been answered, and the patient deny any further questions with discharge and discharge plan. Some parts of this dictation were generated by voice recognition software and may contain typographical and/or grammatical inaccuracies. Differential Diagnosis Differential Diagnosis: Differential diagnostic considerations for upper respiratory infection include upper respiratory infection, croup, otitis media, sinusitis, viral infection, bronchitis, influenza, pharyngitis, strep, uvulitis.? Lab Data Labs: Lab Results 05/29/25 Range/Units 09:07 POC Influenza A Ag Negative (Negative) POC Influenza B Ag Negative (Negative) POC SARS CoV-2 Ag Negative (Negative) POC Grp A Strep Screen Negative (Negative) Reviewed Discharge Plan Discharge Clinical Impression: Influenza-like illness Patient Disposition: Home Condition: Stable Instructions: Antibiotic Form, Influenza (ED) Additional Instructions: Your rapid strep swab was negative today at [facility]. A throat culture will be sent to the laboratory for further testing. If the test is positive, you will receive a phone call within 48 hours and an appropriate antibiotic will be initiated at that time. Your rapid COVID test were negative Your rapid flu test was negative Your symptoms are likely due to a viral illness, which is not treated with antibiotics. Typically viral infections last 7-10 days, can linger for couple of weeks. It is very important to treat your symptoms. Drink plenty of water, Gatorade, Pedialyte, ice pops or Jell-O. -Alternate Tylenol and Motrin per package directions for fever or pain. You can alternate every 4 hours -Antihistamine medication such as Zyrtec/Claritin/Linda during the day can help improve symptoms. -doing daily nasal irrigations can help relieve pressure your sinuses. Things like a Neti pot -Use Flonase twice a day for 5 days then daily to help reduce the inflammation and dry up your sinuses. -You can also use Mucinex. Be sure to drink plenty of water with this medication at least 8 ounces with every dose and it is important to drink 8 to 10 glasses of water per day. Water is a natural decongestant -Eat and drink things that are easy to swallow, like tea or soup, or popsicles. -Oral rinses such as: Salt water gargles and/or may use topical anesthetic (eg. Chloraseptic spray) or lozenges to relieve dryness or throat pain). -Frequent hand washing or hand cripple chaser is one of the best ways to prevent spread of infection. -Using a vaporizer or humidifier at night will also help thin secretions and help with coughing up phlegm. -Follow up with primary care provider in 7-10 days if condition is not improving - For new or worsening symptoms go directly to the nearest ER Patient Language: Israeli Prescriptions: No Action aspirin 81 mg Tablet 81 mg PO DAILY atenolol 50 mg Tablet 50 mg PO BID atorvastatin 40 mg tablet 40 mg PO HS Qty: 30 0RF Follow-up/Referrals: Ivonne,Chayito Wise MD [Primary Care Provider] - 1 Week Clinical Impression: Influenza-like illness Stand Alone Forms: Work/School Release IP Time of Disposition: 09:19
[2025-05-29 08:46] VITALS: BP 138/82; PULSE 80; RESP 16; TEMP 36.2; O2SAT 97
[2025-05-29 09:09] LABS: EDCOVIDSCREEN Negative (Negative); EDINFLUASCREEN Negative (Negative); EDINFLUBSCREEN Negative (Negative); EDSTREPNEGPOS1 Negative (Negative)
== END 2025-05-29 09:26 | disposition home or self-care (01) ==
PROVIDERS: Emergency Provider Nurse Practitioner; PCP Family Medicine Sports Medicine
DX: R50.9 Fever, unspecified (principal); R05.9 Cough, unspecified; I10 Essential (primary) hypertension; Z79.82 Long term (current) use of aspirin; Z20.822 Contact with and (suspected) exposure to COVID-19
CPT/HCPCS: 87081; 87426; 87804; 87880; 99213; G0463